=== PATIENT | female | born 1975 | race Caucasian/White ===

== ENCOUNTER 2020-06-13 20:11 | Day surgery (SDC) | payer BC, OTHER ==
[~2020-06-13] VITALS: Ht 175 cm; Wt 102.1 kg
--- NOTE | 2020-06-13 20:29 | ED General ---
General Chief Complaint: General Problems/Pain Stated Complaint: ABD PAIN History of Present Illness Date Seen by Provider: Jun 13, 2020 Time Seen by Provider: 20:29 Initial Comments Patient presented to emergency department for evaluation of right upper quadrant abdominal pain that started around 2:00 this afternoon while she was driving and she describes it as a gnawing aching pain that causes her some nausea. She says she has had some constipation but no fevers chills vomiting diarrhea dysuria hematuria vaginal bleeding or vaginal discharge and she denies having a prior abdominal surgeries. She says the pain started slightly and has increased in intensity over the last 6 hours. She is in no obvious distress with normal vital signs. Allergies and Home Medications Allergies Coded Allergies: No Known Drug Allergies (Unverified , 06/13/20) Patient Home Medication List Home Medication List Reviewed: Yes Review of Systems Review of Systems Constitutional: no symptoms reported EENTM: no symptoms reported Respiratory: no symptoms reported Cardiovascular: no symptoms reported Gastrointestinal: abdominal pain, nausea Genitourinary: no symptoms reported Musculoskeletal: no symptoms reported Skin: no symptoms reported Psychiatric/Neurological: No Symptoms Reported All Other Systems Reviewed Negative Unless Noted: Yes Past Yemibbz-Mpuqqf-Graaav Hx Patient Social History Recent Foreign Travel: No Contact w/Someone Who Travel: No Physical Exam Vital Signs Vital Signs - First Documented 06/13/20 20:20 Temp 37.3 Pulse 114 Resp 18 B/P (MAP) 144/72 (96) Pulse Ox 97 O2 Delivery Room Air Capillary Refill : Height, Weight, BMI Height: '" Weight: lbs. oz. kg; BMI Method: General Appearance: No Apparent Distress, WD/WN HEENT: PERRL/EOMI Neck: Supple Respiratory: Lungs Clear Cardiovascular: Regular Rate, Rhythm Gastrointestinal: Soft, Tenderness (RUQ with no rebound or guarding) Back: Normal Inspection Extremity: Normal Capillary Refill Neurologic/Psychiatric: Alert, Oriented x3 Skin: Warm/Dry Progress/Results/Core Measures Suspected Sepsis SIRS Temperature: Pulse: Respiratory Rate: Laboratory Tests 06/13/20 20:40: White Blood Count 12.0H Blood Pressure / Mean: Laboratory Tests 06/13/20 20:40: Creatinine 0.93, Platelet Count 324, Total Bilirubin 0.4 Results/Orders Lab Results Laboratory Tests Test 06/13/20 20:20 06/13/20 20:40 Range/Units Urine Color YELLOW Urine Clarity CLEAR Urine pH 7.0 5-9 Urine Specific [place] 1.020 1.016-1.022 Urine Protein NEGATIVE NEGATIVE Urine Glucose (UA) NEGATIVE NEGATIVE Urine Ketones NEGATIVE NEGATIVE Urine Nitrite NEGATIVE NEGATIVE Urine Bilirubin NEGATIVE NEGATIVE Urine Urobilinogen 0.2 < = 1.0 MG/DL Urine Leukocyte Esterase NEGATIVE NEGATIVE Urine RBC (Auto) TRACE H NEGATIVE Urine RBC 0-2 /HPF Urine WBC NONE /HPF Urine Crystals NONE /LPF Urine Bacteria NONE /HPF Urine Casts NONE /LPF Urine Mucus NEGATIVE /LPF Urine Culture Indicated NO White Blood Count 12.0 H 4.3-11.0 10^3/uL Red Blood Count 4.25 L 4.35-5.85 10^6/uL Hemoglobin 13.0 11.5-16.0 G/DL Hematocrit 39 35-52 % Mean Corpuscular Volume 91 80-99 FL Mean Corpuscular Hemoglobin 31 25-34 PG Mean Corpuscular Hemoglobin Concent 34 32-36 G/DL Red Cell Distribution Width 12.4 10.0-14.5 % Platelet Count 324 130-400 10^3/uL Mean Platelet Volume 9.2 7.4-10.4 FL Immature Granulocyte % (Auto) 0 % Neutrophils (%) (Auto) 71 42-75 % Lymphocytes (%) (Auto) 21 12-44 % Monocytes (%) (Auto) 6 0-12 % Eosinophils (%) (Auto) 1 0-10 % Basophils (%) (Auto) 1 0-10 % Neutrophils # (Auto) 8.6 H 1.8-7.8 X 10^3 Lymphocytes # (Auto) 2.5 1.0-4.0 X 10^3 Monocytes # (Auto) 0.7 0.0-1.0 X 10^3 Eosinophils # (Auto) 0.1 0.0-0.3 10^3/uL Basophils # (Auto) 0.1 0.0-0.1 10^3/uL Immature Granulocyte # (Auto) 0.0 0.0-0.1 10^3/uL Sodium Level 139 135-145 MMOL/L Potassium Level 3.8 3.6-5.0 MMOL/L Chloride Level 103 98-107 MMOL/L Carbon Dioxide Level 24 21-32 MMOL/L Anion Gap 12 5-14 MMOL/L Blood Urea Nitrogen 15 7-18 MG/DL Creatinine 0.93 0.60-1.30 MG/DL Estimat Glomerular Filtration Rate > 60 BUN/Creatinine Ratio 16 Glucose Level 120 H 70-105 MG/DL Calcium Level 9.7 8.5-10.1 MG/DL Corrected Calcium 9.4 8.5-10.1 MG/DL Total Bilirubin 0.4 0.1-1.0 MG/DL Aspartate Amino Transf (AST/SGOT) 19 5-34 U/L Alanine Aminotransferase (ALT/SGPT) 20 0-55 U/L Alkaline Phosphatase 64 40-136 U/L Total Protein 7.4 6.4-8.2 GM/DL Albumin 4.4 3.2-4.5 GM/DL Lipase 24 8-78 U/L My Orders Orders - NIR SOTO DO Cbc With Automated Diff (06/13/20 20:33) Comprehensive Metabolic Panel (06/13/20 20:33) Iv/Invasive Line Insertion .IV start (06/13/20 20:33) Ct Abdomen/Pelvis W (06/13/20 20:33) Ua Culture If Indicated (06/13/20 20:33) Lipase (06/13/20 20:33) Ondansetron Injection (Zofran Injectio (06/13/20 20:45) Ns Iv 1000 Ml (Sodium Chloride 0.9%) (06/13/20 20:45) Morphine Injection (Morphine Injection (06/13/20 20:33) Iohexol Injection (Omnipaque 350 Mg/Ml 1 (06/13/20 20:45) Received Contrast (Hold Metformin- Contr (06/13/20 20:45) Ns (Ivpb) (Sodium Chloride 0.9% Ivpb Bag (06/13/20 20:45) Medications Given in ED Current Medications Medications Dose Ordered Sig/Arron Route Start Time Stop Time Status Last Admin Dose Admin Iohexol 100 ml ONCE ONCE IV 06/13/20 20:45 06/13/20 21:14 DC 06/13/20 21:19 100 ML Ondansetron HCl 4 mg ONCE ONCE IVP 06/13/20 20:45 06/13/20 20:46 DC 06/13/20 20:43 4 MG Sodium Chloride 100 ml ONCE ONCE IV 06/13/20 20:45 06/13/20 21:14 DC 06/13/20 21:19 80 ML Vital Signs/I&O 06/13/20 20:20 Temp 37.3 Pulse 114 Resp 18 B/P (MAP) 144/72 (96) Pulse Ox 97 O2 Delivery Room Air Capillary Refill : Progress Note : Progress Note Patient's with right upper quadrant abdominal pain on exam. Will check labs imaging treat symptoms and reassess. Based off patient's location of pain I did not suspect that she would have acute appendicitis based off the CT read she does. I spoke to Dr. Roman and he will plan to take patient to the operating room tomorrow morning. Patient is comfortable with driving private vehicle to [facility] and Dr. Roman said he would put in a bridge orders. I told her to not eat or drink anything and drive straight there. Patient aware and agreeable with plan for transfer and she was transferred in stable condition with improved pain and a nonsurgical abdomen on initial and repeat abdominal exam. Departure Impression Primary Impression: Acute appendicitis Qualified Codes: K35.80 - Unspecified acute appendicitis Disposition: ADMITTED INPATIENT Condition: Improved Transfer Transfer Reason: Exceeds level of care Transfer Facility: [facility] Method of Transfer: Private Vehicle Departure-Patient Inst. Referrals: NO,LOCAL PHYSICIAN (PCP/Family) Primary Care Physician NIR SOTO DO Jun 13, 2020 20:29
[2020-06-13] MEDS ORDERED: morphine INJ 10 MG/ML 1ML (SYR OR VIAL) IVP STA (20:33)
[2020-06-13 20:43] LABS: CLARITY,URINE CLEAR; COLOR,URINE YELLOW
[2020-06-13 20:44] LABS: BILIRUBIN,URINE NEGATIVE (NEGATIVE); GLUCOSE, URINE (UA) NEGATIVE (NEGATIVE); KETONES,URINE NEGATIVE (NEGATIVE); LEUKOCYTE ESTERASE ,URINE NEGATIVE (NEGATIVE); NITRITE,URINE NEGATIVE (NEGATIVE); PROTEIN,URINE NEGATIVE (NEGATIVE); RBC,URINE 0-2 /HPF
[2020-06-13] MEDS ORDERED: IOHEXOL 350 MG/ML 100 ML (OMNIPAQUE 350) VIAL IV ONE (20:45)
[2020-06-13] MEDS ORDERED: ONDANSETRON 4 MG/2 ML (SDV) Z0FRAN IVP ONE (20:45)
[2020-06-13] MEDS ORDERED: HOLD METFORMIN - RECEIVED CONTRAST 20 ML VIAL IV SCH (20:45)
[2020-06-13] MEDS ORDERED: NS IV 1000 ML 1,000 ML IV SCH (20:45)
[2020-06-13] MEDS ORDERED: NS 100 ML (IVPB) BAG IV ONE (20:45)
[2020-06-13 20:56] LABS: BASOPHILS % (AUTO) 1 % (0-10); EOSINOPHILS % (AUTO) 1 % (0-10); HEMATOCRIT 39 % (35-52); LYMPHOCYTES # (AUTO) 2.5 X 10^3 (1.0-4.0); LYMPHOCYTES % (AUTO) 21 % (12-44); MEAN CORPUSCULAR HEMOGLOBIN 31 PG (25-34); MEAN CORPUSCULAR HGB CONC 34 G/DL (32-36); MEAN CORPUSCULAR VOLUME 91 FL (80-99); MEAN PLATELET VOLUME 9.2 FL (7.4-10.4); MONOCYTES # (AUTO) 0.7 X 10^3 (0.0-1.0); MONOCYTES % (AUTO) 6 % (0-12); NEUTROPHILS # (AUTO) 8.6 X 10^3 (1.8-7.8); NEUTROPHILS % (AUTO) 71 % (42-75); PLATELET COUNT 324 10^3/uL (130-400)
[2020-06-13 20:57] LABS: BASOPHILS # (AUTO) 0.1 10^3/uL (0.0-0.1); EOSINOPHILS # (AUTO) 0.1 10^3/uL (0.0-0.3)
[2020-06-13 21:12] LABS: BILIRUBIN,TOTAL 0.4 MG/DL (0.1-1.0); BUN/CREATININE RATIO 16; CALCIUM 9.7 MG/DL (8.5-10.1); CARBON DIOXIDE 24 MMOL/L (21-32); CHLORIDE 103 MMOL/L (98-107); CREATININE SERUM 0.93 MG/DL (0.60-1.30); GFR ESTIMATED > 60; GLUCOSE 120 MG/DL (70-105); POTASSIUM 3.8 MMOL/L (3.6-5.0); SODIUM 139 MMOL/L (135-145)
[2020-06-13 21:13] LABS: ALANINE AMINOTRANSFERASE 20 U/L (0-55); ALBUMIN 4.4 GM/DL (3.2-4.5); ALKALINE PHOSPHATASE 64 U/L (40-136); LIPASE 24 U/L (8-78); TOTAL PROTEIN 7.4 GM/DL (6.4-8.2)
--- NOTE | 2020-06-13 21:31 | Diagnostic Imaging Report ---
PROCEDURE: CT abdomen and pelvis with contrast. TECHNIQUE: Multiple contiguous axial images were obtained through the abdomen and pelvis after administration of intravenous contrast. Auto Exposure Controls were utilized during the CT exam to meet ALARA standards for radiation dose reduction. All CT scans use one or more of the following dose optimizing techniques: automated exposure control, MA and/or KvP adjustment based on patient size and exam type or iterative reconstruction. INDICATION: Right upper quadrant pain. FINDINGS: The heart size is normal. The lung bases are clear. The liver is normal in size and without focal lesions. Gallbladder is unremarkable. No biliary ductal dilatation. Spleen is normal. Stomach is normal. Pancreas and adrenal glands are unremarkable. The appendix is enlarged and hyperemic with surrounding inflammatory change compatible with acute appendicitis. The aorta is nonaneurysmal. Bowel gas pattern is nonspecific. The uterus is normal. Bladder is normal. There is no pelvic mass or adenopathy. The osseous structures are unremarkable IMPRESSION: 1. Findings compatible with an acute unruptured appendicitis. Report given to Dr. Bergeron at 9:30 PM 06/13/2020/cb Dictated by: Dictated on workstation # [id number]
[2020-06-13] MEDS ORDERED: LACTATED RINGERS 1,000 ML IV SCH (22:00)
[2020-06-13] MEDS ORDERED: PATIENT MAY USE OWN MEDS, ALL PO SCH ×2 (22:00→22:30)
[2020-06-13] MEDS ORDERED: ONDANSETRON 4 MG/2 ML (SDV) Z0FRAN IVP PRN (22:00)
[2020-06-13 23:18] VITALS: BP 129/69
[2020-06-13 23:25] VITALS: BP 126/62
[2020-06-13] MEDS ORDERED: PIPERACILLIN/TAZO 4.5 GM/NS 100 ML IV ONE ×2 (23:30)
[2020-06-14] VITALS (10 sets, daily range): BP systolic 105–119; BP diastolic 57–73
[2020-06-14] MEDS: LACTATED RINGERS 1,000 ML IV SCH ×3 (00:03→14:35)
[2020-06-14] MEDS: ACETAMINOPHEN 500 MG TAB (TYLENOL) PO SCH ×2 (00:04→05:49)
[2020-06-14] MEDS ORDERED: NS (IVPB) 100 ML ONE ×2 (00:06→05:31)
[2020-06-14] MEDS ORDERED: PIPERACILLIN/TAZO 4.5 GM VIAL (ZOSYN) IV ONE ×2 (00:06→05:31)
[2020-06-14] MEDS: KETOROLAC 30 MG/ML VIAL IV SCH ×2 (00:19→05:49)
[2020-06-14] MEDS: PIPERACILLIN/TAZO 4.5 GM/NS 100 ML IV SCH ×4 (05:54→14:34)
[2020-06-14] MEDS ORDERED: FLU QUADRIvalent (3YOA+) 60 mcg/0.5 ml 2020-21 (AFLURIA) IM ONE (07:00)
[2020-06-14] MEDS ORDERED: ONDANSETRON 4 MG/2 ML (SDV) Z0FRAN IV PRN (07:15)
--- NOTE | 2020-06-14 09:22 | History & Physical-Surgical ---
History of Present Illness History of Present Illness Reason for visit/HPI Surgery asked to admit pt regarding appendicitis. HPI per ED: Patient presented to emergency department for evaluation of right upper quadrant abdominal pain that started around 2:00 this afternoon while she was driving and she describes it as a gnawing aching pain that causes her some nausea. She says she has had some constipation but no fevers chills vomiting diarrhea dysuria hematuria vaginal bleeding or vaginal discharge and she denies having a prior abdominal surgeries. She says the pain started slightly and has increased in intensity over the last 6 hours. She is in no obvious distress with normal vital signs. When I spoke to pt this am she told me the pain is better, but still there. She rates the pain as 4 out of 10, yesterday it was at least an 8. She thought it might be gallbladder or gas pains, but since it wasn't going away she went in to the ER. She has never had pain like this before Date of Admission Jun 13, 2020 at 23:00 Time Seen by a Provider: 08:16 I consulted on this patient on 06/14/20 08:16 Attending Physician Thor Roman DO Admitting Physician No,Local Physician Consult Allergies and Home Medications Allergies Coded Allergies: No Known Drug Allergies (Unverified , 06/13/20) Patient Home Medication List Home Medication List Reviewed: Yes Past Mvntrzy-Zxkjvn-Lowsmu Hx Patient Social History Alcohol Use: Denies Use Recreational Drug Use: No Smoking Status: Never a Smoker Recent Foreign Travel: No Contact w/Someone Who Travel: No Recent Infectious Disease Expo: No Recent Hopitalizations: No Surgeries History of Surgeries: No Respiratory History of Respiratory Disorde: No Cardiovascular History of Cardiac Disorders: No Neurological History of Neurological Disord: No Reproductive System : No Genitourinary History of Genitourinary Disor: No Gastrointestinal History of Gastrointestinal Di: No Musculoskeletal History of Musculoskeletal Dis: No Endocrine History of Endocrine Disorders: No HEENT History of HEENT Disorders: No Cancer History of Cancer: No Psychosocial History of Psychiatric Problem: No Integumentary History of Skin or Integumenta: No Blood Transfusions History of Blood Disorders: No Family Medical History Significant Family History: CAD Over 55 Years Old (Father and actually during an angioplasty), Hypertension (Father) Review of Systems Constitutional: No chills, No diaphoresis; malaise EENTM: No blurred vision, No double vision, No mouth pain, No mouth swelling, No epistaxis Respiratory: No cough, No dyspnea on exertion, No short of breath Cardiovascular: No chest pain, No edema, No palpitations Gastrointestinal: abdominal pain (RUQ); No hematemesis, No jaundice; loss of appetite, nausea; No vomiting Genitourinary: No dysuria, No frequency, No hematuria Musculoskeletal: No back pain, No gout, No joint pain Skin: No change in color, No change in hair/nails Psychiatric/Neurological: Denies Anxiety, Denies Depressed, Denies Seizure, Denies Tremors pt denies any hx of abnormal bleeding or bruising Physical Exam Vital Signs Vital Signs - First Documented 06/13/20 20:20 Temp 37.3 Pulse 114 Resp 18 B/P (MAP) 144/72 (96) Pulse Ox 97 O2 Delivery Room Air Capillary Refill : Less Than 3 SecondsLess Than 3 Seconds Height, Weight, BMI Height: '" Weight: lbs. oz. kg; 33.33 BMI Method: General Appearance: No Apparent Distress, WD/WN Eyes: Bilateral Eye PERRL, Bilateral Eye EOMI HEENT: Pharynx Normal, Moist Mucous Membranes; No Scleral Icterus (L), No Scle ral Icterus (R) Neck: Full Range of Motion, Normal Inspection, Non Tender, Supple Respiratory: Chest Non Tender, Lungs Clear, Normal Breath Sounds, No Accessory Muscle Use, No Respiratory Distress Cardiovascular: Regular Rate, Rhythm, No Murmur Gastrointestinal: No Organomegaly, Soft; No Distended; Tenderness (right side, upper and lower quadrant) Back: No CVA Tenderness, No Vertebral Tenderness Extremity: Normal Inspection, Normal Range of Motion, Non Tender, No Calf Tenderness, No Pedal Edema Neurologic/Psychiatric: Alert, Oriented x3, No Motor/Sensory Deficits, Normal Mood/Affect, alpine patroller II-XII Norm as Tested Skin: Normal Color, Warm/Dry Lymphatic: No Adenopathy (neck, axilla or groin) Data Review Labs Laboratory Tests 06/13/20 20:20: Urine Color YELLOW, Urine Clarity CLEAR, Urine pH 7.0, Urine Specific [place] 1.020, Urine Protein NEGATIVE, Urine Glucose (UA) NEGATIVE, Urine Ketones NEGATIVE, Urine Nitrite NEGATIVE, Urine Bilirubin NEGATIVE, Urine Urobilinogen 0.2, Urine Leukocyte Esterase NEGATIVE, Urine RBC (Auto) TRACEH, Urine RBC 0-2, Urine WBC NONE, Urine Crystals NONE, Urine Bacteria NONE, Urine Casts NONE, Urine Mucus NEGATIVE, Urine Culture Indicated NO 06/13/20 20:40: White Blood Count 12.0H, Red Blood Count 4.25L, Hemoglobin 13.0, Hematocrit 39, Mean Corpuscular Volume 91, Mean Corpuscular Hemoglobin 31, Mean Corpuscular He moglobin Concent 34, Red Cell Distribution Width 12.4, Platelet Count 324, Mean Platelet Volume 9.2, Immature Granulocyte % (Auto) 0, Neutrophils (%) (Auto) 71, Lymphocytes (%) (Auto) 21, Monocytes (%) (Auto) 6, Eosinophils (%) (Auto) 1, Basophils (%) (Auto) 1, Neutrophils # (Auto) 8.6H, Lymphocytes # (Auto) 2.5, Monocytes # (Auto) 0.7, Eosinophils # (Auto) 0.1, Basophils # (Auto) 0.1, Immature Granulocyte # (Auto) 0.0, Sodium Level 139, Potassium Level 3.8, Chloride Level 103, Carbon Dioxide Level 24, Anion Gap 12, Blood Urea Nitrogen 15, Creatinine 0.93, Estimat Glomerular Filtration Rate > 60, BUN/Creatinine Ratio 16, Glucose Level 120H, Calcium Level 9.7, Corrected Calcium 9.4, Total Bilirubin 0.4, Aspartate Amino Transf (AST/SGOT) 19, Alanine Aminotransferase (ALT/SGPT) 20, Alkaline Phosphatase 64, Total Protein 7.4, Albumin 4.4, Lipase 24 06/14/20 04:40: Coronavirus 2019 ([facility]) Negative Radiology Date of Exam:06/13/20 CT ABDOMEN/PELVIS W PROCEDURE: CT abdomen and pelvis with contrast. TECHNIQUE: Multiple contiguous axial images were obtained through the abdomen and pelvis after administration of intravenous contrast. Auto Exposure Controls were utilized during the CT exam to meet ALARA standards for radiation dose reduction. All CT scans use one or more of the following dose optimizing techniques: automated exposure control, MA and/or KvP adjustment based on patient size and exam type or iterative reconstruction. INDICATION: Right upper quadrant pain. FINDINGS: The heart size is normal. The lung bases are clear. The liver is normal in size and without focal lesions. Gallbladder is unremarkable. No biliary ductal dilatation. Spleen is normal. Stomach is normal. Pancreas and adrenal glands are unremarkable. The appendix is enlarged and hyperemic with surrounding inflammatory change compatible with acute appendicitis. The aorta is nonaneurysmal. Bowel gas pattern is nonspecific. The uterus is normal. Bladder is normal. There is no pelvic mass or adenopathy. The osseous structures are unremarkable IMPRESSION: 1. Findings compatible with an acute unruptured appendicitis. Report given to Dr. Bergeron at 9:30 PM 06/13/2020/cb Dictated by: Dictated on workstation # [id number] Dict: 06/13/202120 Trans: 06/13/202133 [facility] [id number] Interpreted by: NIDA EDGAR MD Electronically signed by: NIDA EDGAR MD 06/13/202133 Assessment/Plan Assessment/Plan Admission Diagonsis Acute Appendicitis Admission Status: Observation Assessment/Plan Acute Appendicitis Pt was admitted last night, started on IV fluids, IV ABX, anti-emetics and pain control as needed. I spoke with her this am regarding Laparoscopic Appendectomy, possible open and wrote for consent. We discussed the procedure; including risks and complications not limited to pain, bleeding, infection, scar, damage to bowel and need for further procedure. All questions answered to her satisfaction. The plan is to do surgery today at noon, once the OR is available. Clinical Quality Measures DVT/VTE Risk/Contraindication: Risk Factor Score Per Nursin RFS Level Per Nursing on Admit: 2=Moderate THOR ROMAN DO Jun 14, 2020 09:22
[2020-06-14] MEDS ORDERED: LIDOCAINE/EPI 1%-1:100,000 (XYLOCAINE) 50 ML ONE (10:32)
--- NOTE | 2020-06-14 11:03 | NUR ---
TO SURGERY PER BED, URINE NEG, VERBALIZED UNDERSTANDING OF SURGERY, REMAINS NPO
[2020-06-14] MEDS: LACTATED RINGERS 1,000 ML IV PRN ×2 (11:05→12:53)
[2020-06-14] MEDS ORDERED: ROCURONIUM 10 MG/ML 5 ML SYRINGE IV ONE (11:21)
[2020-06-14] MEDS ORDERED: SEVOFLURANE (ULTANE) 15 ML INHAL SOLN ONE (11:21)
[2020-06-14] MEDS ORDERED: ONDANSETRON 4 MG/2 ML (SDV) Z0FRAN ONE (11:21)
[2020-06-14] MEDS ORDERED: MIDAZOLAM 2 MG/2 ML (VERSED) VIAL ONE (11:21)
[2020-06-14] MEDS ORDERED: proPOfol 200 MG/20 ML (DIPRIVAN) VIAL IV ONE (11:21)
[2020-06-14] MEDS ORDERED: fentaNYL INJECTION 100 MCG/2 ML AMP ONE (11:21)
[2020-06-14] MEDS ORDERED: SUCCINYLCHOLINE INJ 100 MG/5 ML SYR/VIAL ONE (11:21)
[2020-06-14] MEDS ORDERED: HYDROmorphone 2 MG/ML VIAL (DILAUDID) ONE (11:51)
[2020-06-14] MEDS ORDERED: KETOROLAC 30 MG/ML VIAL IV SCH (12:00)
[2020-06-14] MEDS ORDERED: GLYCOPYRROLATE 0.2 MG/ML (ROBINUL) 2 ML VIAL ONE (12:07)
[2020-06-14] MEDS ORDERED: NEOSTIGMINE 3 MG/3 ML VIAL ONE (12:07)
[2020-06-14] MEDS ORDERED: KETOROLAC 30 MG/ML VIAL ONE (12:09)
--- NOTE | 2020-06-14 12:17 | Progress Note-Post Operative ---
Post-Operative Progess Note Surgeon (s)/Mailmaster (s) Surgeon SHAYY ANTUNEZ DO Mailmaster: none Pre-Operative Diagnosis Acute Appy Post-Operative Diagnosis same - retrocecal Procedure & Operative Findings Date of Procedure 06/14/20 Procedure Performed/Findings PROCEDURE: Laparoscopic appendectomy. COMPLICATIONS: None. INDICATIONS: The patient is a 44 year old female who has been having right lower quadrant abdominal pain. Patient's exam consistent with appendicitis. I discussed risk and benefits of laparoscopic appendectomy and all indicated procedures with the possibility being a normal appendix. The patient understands the risks and benefits and wishes to proceed. Consent was signed on the chart. DESCRIPTION OF PROCEDURE: The patient was taken to the operating suite, prepped and draped in a sterile fashion. Timeout was performed. Local anesthetic was infiltrated just above the umbilicus and 11-blade scalpel was used to make a skin incision. Cautery was used to dissect down to the fascia and scored. Kochers were used to grasp and elevate it and the abdomen was then entered. A 0 Vicryl was placed in a [id number] fashion for closure at the end of the case. The balloon trocar was inserted into the abdomen and pneumoperitoneum was achieved. Under direct visualization of the laparoscope, a 5 mm trocar was placed in the suprapubic region and a 5 mm trocar was placed in the left lower quadrant. Appendix was located, [FINDINGS]. The base of the appendix was dissected around. Once at the base an Endo-ALYSON 2.5 stapler was then fired across the base of the appendix. The mesoappendix was then divided. It was then placed in an Endobag and removed through the 12 mm trocar site. The abdomen was then irrigated and suctioned. No other pathology noted. The abdomen was then desufflated and the trocars were removed. The 0 Vicryl placed at the beginning of the case was then tied closing the 12 mm fascial defect. The skin was then closed using 4-0 Monocryl in a subcuticular fashion. The abdomen was then washed and dried and Skin Affix was placed over the incisions. The patient tolerated the procedure well without any complications and was taken to the recovery room in stable condition. Anesthesia Type GET Estimated Blood Loss Estimated blood loss (mL): scant Specimens/Packing Specimens Removed SHAYY Ang DO Jun 14, 2020 12:17
[2020-06-14] MEDS ORDERED: HYDR-4226 PO (12:18)
--- NOTE | 2020-06-14 12:19 | Discharge Inst-Surgical ---
Discharge Inst-Surgical Depart Medication/Instructions New, Converted or Re-Newed RX: RX Given to Pt/Family Patient Instructions Follow up Appt: Make appointment for 1-2 weeks. [phone] Instructions: No lifting greater than 20 pounds. No strenuous activity. May shower in 24 hours, no tub bath or soaking. Use incentive spirometer at home as directed. No Smoking Skin/Wound Care: May remove bandages in am. You need to leave the Dermabond on incision it will fall off on it's own. Symptoms to Report: Appetite Changes, Extremity Discoloration, Numbness/Tingling, Swelling Increased, Bleeding Excessive, Eyesight Changes, Pain Increased, Urine Color Change, Constipation(Persistent), Fever over 101 degree F, Pain/Pressure in chest, Urinating Difficulty, Cough Up/Vomit Blood, Heart Beat Irreg/Pounding, Pain/Pressure in jaw, Cramps in feet or legs, Lightheadedness, Pain/Pressure in shoulder, Diarrhea(Persistent), Memory Changes Suddenly, Questions/Concerns, Weight gain consecutive days, Dizziness/Fainting, Nausea/Vomiting, Shortness of Breath, Weight gain over 2 pounds If questions or concerns contact your physician Or seek help at emergency department. Activity Activity as Tolerated: Yes Activity Instructions: Avoid Stress to Incision Driving Instructions: No Driving/Refer to Dr. Mo Discharge Diet: No Restrictions Diet After 24 Hours: Clear Liquid if Nauseous If Any Problems/Questions/Issu: Contact Your Physician, Go to Emergency Room Skin/Wound Care Infection Signs and Symptoms: Increased Redness, Foul Odor of Wound, Increased Drainage, Skin Itchy or Has a Rash, Increased Swelling, Temperature Above 101 F Wound Care Comment: heating pad to shoulder or neck tonight for pain Bathing Instructions: Shower Stitches/Sukhwinder/Dermabond Dis: Dermabond Ice Pack: Ice On and Off Site (at incisions as needed for pain) SHAYY ANTUNEZ DO Jun 14, 2020 12:19
[2020-06-14] MEDS ORDERED: SUGAMMADEX 500 MG/5 ML VIAL (BRIDION) IV ONE (12:31)
[2020-06-14] MEDS ORDERED: ONDANSETRON 4 MG/2 ML (SDV) Z0FRAN IVP PRN (12:45)
[2020-06-14] MEDS ORDERED: HYDROmorphone 2 MG/ML VIAL (DILAUDID) IV ONE (12:45)
--- NOTE | 2020-06-14 13:20 | NUR ---
RETURNED FROM RECOVERY, ALERT AND ORIENTED, LAP SITE ON ABD TIMES 3 SITES, NO DRAINAGE, OPEN TO AIR, ICE PACK TO ABD, NO C/O PAIN AT THIS TIME, RESP EVEN, ON ROOM AIR, O2 SAT 93 PERCENT, NOC/O NAUSEA, CALL LIGHT WITHIN REACH
[2020-06-14] MEDS ORDERED: ACETAMINOPHEN 500 MG TAB (TYLENOL) PO SCH ×2 (14:00)
--- NOTE | 2020-06-14 16:00 | NUR ---
TOLERATED CLEAR LIQUID DIET, VOIDING WITHOUT DIFFICULTY, ICE PACK TO ABD, DENIES PAIN AT THIS TIME, WALKED IN RAMIRES, MARTIN WELL.
--- NOTE | 2020-06-14 17:00 | NUR ---
DISCHARGE INSTRUCTIONS GIVEN, PRESCRIPTION GIVEN
--- NOTE | 2020-06-14 17:01 | Anesthesia-General Post-Op ---
General Patient Condition Mental Status/LOC: Same as Preop Cardiovascular: Satisfactory Nausea/Vomiting: Absent Respiratory: Satisfactory Pain: Controlled Complications: Absent Post Op Complications Complications None Follow Up Care/Instructions Patient Instructions None needed. Anesthesia/Patient Condition Patient Condition Patient is doing well, no complaints, stable vital signs, no apparent adverse anesthesia problems. No complications reported per nursing. D/C home per [place] Criteria: Yes DARREL CHOUDHURY CRNA Jun 14, 2020 17:01
--- NOTE | 2020-06-14 17:15 | NUR ---
SHERI CIFUENTES demonstrates understanding of discharge instructions and accurately returns instructions upon questioning. Copy of Post-Discharge Instructions and Medication Discharge Instructions given to patient. SHERI CIFUENTES isable to manage continuing needs after discharge. Patients belongings returned to . Skin dry and intact; no breakdown noted. Patient discharged from [facility]- on 06/14/20 at 1715. SHERI CIFUENTES left floor via w/c, accompanied by staff.
== END 2020-06-14 17:15 | disposition home or self-care (01) ==
LOC: ER FS 20:15 → 4TH 23:00 → SDC 23:00 → UNDOADMIN 23:00 → 4TH 23:00 → SDC 06-14 17:15 → UNDODISIN 06-14 17:15
PROVIDERS: ATTEND Surgery
DX: K35.80 Unspecified acute appendicitis (principal); J45.909 Unspecified asthma, uncomplicated; K21.9 Gastro-esophageal reflux disease without esophagitis; Z79.51 Long term (current) use of inhaled steroids; Z79.899 Other long term (current) drug therapy; Z82.49 Family history of ischemic heart disease and other diseases of the circulatory system
CPT/HCPCS: 36415; 74177; 80053; 81000; 83690; 84703; 85025; 87081; 87635; 88304

== ENCOUNTER 2020-10-11 15:06 | Emergency (ER) | payer BC ==
[~2020-10-11] VITALS: Ht 175.2 cm; Wt 102.1 kg
[~2020-10-11 15:06] MED LIST: HYDR-4226 PO
--- NOTE | 2020-10-11 15:09 | ED General ---
General Stated Complaint: CHEST PAIN Source of Information: Patient History of Present Illness Date Seen by Provider: Oct 11, 2020 Time Seen by Provider: 15:09 Initial Comments 45-year-old female with no significant past medical history presents with sudden onset of chest pain while at rest just prior to arrival. 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 Denies any preceding illness, cough, fever or chills. Denied any shortness of air, extremity or back pain. Denies previous occurrence of similar pain, denies history of GERD. Allergies and Home Medications Allergies Coded Allergies: No Known Drug Allergies (Unverified , 06/13/20) Home Medications Famotidine 20 Mg Tablet, 20 MG PO BID Prescribed by: JACLYN GLASGOW on 10/11/20 1718 Hydrocodone/Acetaminophen 1 Each Tablet, 1 TAB PO Q6H Prescribed by: SHAYY ANTUNEZ on 06/14/20 1218 Patient Home Medication List Home Medication List Reviewed: Yes Review of Systems Review of Systems Constitutional: No chills, No diaphoresis, No fever, No malaise, No weakness EENTM: no symptoms reported Respiratory: no symptoms reported; No cough, No short of breath, No stridor, No wheezing Cardiovascular: see HPI, chest pain; No edema, No palpitations, No syncope, No vascular heart diseas Gastrointestinal: No abdominal pain, No dysphagia, No loss of appetite, No na usea, No vomiting Musculoskeletal: No back pain, No joint pain, No muscle pain, No neck pain Skin: No change in color, No rash Past Doaspml-Ypggsq-Efanax Hx Past Med/Social Hx: Reviewed Nursing Past Med/Soc Hx Patient Social History Recent Hopitalizations: No Past Medical History Surgeries: No Respiratory: No Currently Using CPAP: No Currently Using BIPAP: No Cardiac: No Neurological: No Genitourinary: No Gastrointestinal: No Musculoskeletal: No Endocrine: No HEENT: No Cancer: No Psychosocial: No Integumentary: No Blood Disorders: No Family Medical History CAD Over 55 Years Old, Hypertension Physical Exam Vital Signs Vital Signs - First Documented 10/11/20 15:06 Temp 36.0 Pulse 97 Resp 18 B/P (MAP) 116/70 (85) Pulse Ox 97 O2 Delivery Room Air Capillary Refill : Height, Weight, BMI Height: '" Weight: lbs. oz. kg; 33.33 BMI Method: General Appearance: No Apparent Distress, WD/WN Neck: Normal Inspection, Non Tender, Supple Respiratory: Chest Non Tender, Lungs Clear, Normal Breath Sounds, No Accessory Muscle Use, No Respiratory Distress Cardiovascular: Regular Rate, Rhythm, No Edema, No Gallop, No JVD, No Murmur, Normal Peripheral Pulses Gastrointestinal: No Organomegaly, No Pulsatile Mass, Non Tender, Soft; No Distended, No Guarding Back: Normal Inspection, No CVA Tenderness Extremity: Normal Capillary Refill, Non Tender Neurologic/Psychiatric: Alert, Oriented x3, No Motor/Sensory Deficits, Normal Mood/Affect Skin: Normal Color, Warm/Dry Progress/Results/Core Measures Suspected Sepsis SIRS Temperature: Pulse: Respiratory Rate: Laboratory Tests 10/11/20 15:10: White Blood Count 7.7 Blood Pressure / Mean: Laboratory Tests 10/11/20 15:10: Creatinine 0.92, Platelet Count 355, Total Bilirubin 0.3 Results/Orders Lab Results Laboratory Tests Test 10/11/20 15:10 10/11/20 16:50 Range/Units White Blood Count 7.7 4.3-11.0 10^3/uL Red Blood Count 4.58 4.35-5.85 10^6/uL Hemoglobin 13.8 11.5-16.0 G/DL Hematocrit 42 35-52 % Mean Corpuscular Volume 91 80-99 FL Mean Corpuscular Hemoglobin 30 25-34 PG Mean Corpuscular Hemoglobin Concent 33 32-36 G/DL Red Cell Distribution Width 13.1 10.0-14.5 % Platelet Count 355 130-400 10^3/uL Mean Platelet Volume 9.1 7.4-10.4 FL Neutrophils (%) (Auto) 43 42-75 % Lymphocytes (%) (Auto) 45 H 12-44 % Monocytes (%) (Auto) 8 0-12 % Eosinophils (%) (Auto) 4 0-10 % Basophils (%) (Auto) 1 0-10 % Neutrophils # (Auto) 3.3 1.8-7.8 X 10^3 Lymphocytes # (Auto) 3.5 1.0-4.0 X 10^3 Monocytes # (Auto) 0.6 0.0-1.0 X 10^3 Eosinophils # (Auto) 0.3 0.0-0.3 10^3/uL Basophils # (Auto) 0.1 0.0-0.1 10^3/uL Sodium Level 140 135-145 MMOL/L Potassium Level 4.1 3.6-5.0 MMOL/L Chloride Level 104 98-107 MMOL/L Carbon Dioxide Level 26 21-32 MMOL/L Anion Gap 10 5-14 MMOL/L Blood Urea Nitrogen 10 7-18 MG/DL Creatinine 0.92 0.60-1.30 MG/DL Estimat Glomerular Filtration Rate > 60 BUN/Creatinine Ratio 11 Glucose Level 105 70-105 MG/DL Calcium Level 9.9 8.5-10.1 MG/DL Corrected Calcium 9.5 8.5-10.1 MG/DL Total Bilirubin 0.3 0.1-1.0 MG/DL Aspartate Amino Transf (AST/SGOT) 18 5-34 U/L Alanine Aminotransferase (ALT/SGPT) 25 0-55 U/L Alkaline Phosphatase 79 40-136 U/L Troponin I < 0.30 < 0.30 <0.30 NG/ML Total Protein 7.8 6.4-8.2 GM/DL Albumin 4.5 3.2-4.5 GM/DL My Orders Orders - CORRINAVENSTJACLYN MCLAIN DO Ed Iv/Invasive Line Start (10/11/20 15:16) Cbc With Automated Diff (10/11/20 15:16) Comprehensive Metabolic Panel (10/11/20 15:16) Troponin I Fs (10/11/20 15:16) Ekg Tracing (10/11/20 15:16) Chest 1 View Ap/Pa Only (10/11/20 15:16) Aspirin Chewable Tablet (Baby Aspirin Ch (10/11/20 15:30) Troponin I Fs (10/11/20 17:00) Medications Given in ED Current Medications Medications Dose Ordered Sig/Arron Route Start Time Stop Time Status Last Admin Dose Admin Aspirin 324 mg ONCE ONCE PO 10/11/20 15:30 10/11/20 15:31 DC 10/11/20 15:41 324 MG Vital Signs/I&O 10/11/20 10/11/20 15:06 17:22 Temp 36.0 36.0 Pulse 97 78 Resp 18 18 B/P (MAP) 116/70 (85) 133/74 (85) Pulse Ox 97 97 O2 Delivery Room Air Room Air Capillary Refill : Progress Note : Progress Note repeat delta Troponin negative after > 2 hours from episode. Patient did not have any episodes while in ER. Discussed need for follow up (pt does not have a PCP) to consider scheduling a stress test. Patient mentions she is moving to [place] in 3 weeks. 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 Empiric Rx for Pepcid for possible GERD. ECG Initial ECG Impression Time: 15:10 Initial ECG Rate: 80 Initial ECG Rhythm: Normal Sinus Initial ECG Intervals: Normal Initial ECG Impression: Normal Initial ECG Comparisson: No Previous ECG Available Diagnostic Imaging Diagonstic Imaging: Xray Plain Films/CT/US/NM/MRI: chest Comments Date of Exam:10/11/20 CHEST 1 VIEW AP/PA ONLY Indication: Substernal chest pain Portable chest 3:20 PM Heart size and pulmonary vascularity are normal. Lungs are clear. There are no effusions or pneumothoraces. IMPRESSION: Negative chest Dictated by: Dictated on workstation # [id number] Dict: 10/11/20 1533 Trans: 10/11/20 1533 TCB [id number] Interpreted by: NELLY العراقي MD Electronically signed by: NELLY العراقي MD 10/11/20 1533 Departure Impression Primary Impression: Chest pain at rest Disposition: 01 HOME, SELF-CARE Condition: Stable Departure-Patient Inst. Decision time for Depature: 17:19 Referrals: NO,LOCAL PHYSICIAN (PCP/Family) Primary Care Physician Patient Instructions: Chest Pain, Adult ED Add. Discharge Instructions: Follow up with your PCP in 3 to 5 days for discussion about today's episode of chest pain. It would be advised that you have a stress test scheduled and your PCP can get that set up for you. If you have any return of chest pain that is not relieved in a few minutes, it is advised you return to the nearest ER for further evaluation. Scripts Famotidine (Pepcid) 20 Mg Tablet 20 MG PO BID, #30 TAB Prov: JACLYN GLASGOW DO 10/11/20 JACLYN GLASGOW DO Oct 11, 2020 15:09
[2020-10-11 15:25] LABS: HEMATOCRIT 42 % (35-52); HEMOGLOBIN 13.8 G/DL (11.5-16.0); MEAN CORPUSCULAR HEMOGLOBIN 30 PG (25-34); MEAN CORPUSCULAR HGB CONC 33 G/DL (32-36); MEAN CORPUSCULAR VOLUME 91 FL (80-99); WHITE BLOOD COUNT 7.7 10^3/uL (4.3-11.0)
[2020-10-11 15:26] LABS: BASOPHILS # (AUTO) 0.1 10^3/uL (0.0-0.1); BASOPHILS % (AUTO) 1 % (0-10); EOSINOPHILS # (AUTO) 0.3 10^3/uL (0.0-0.3); EOSINOPHILS % (AUTO) 4 % (0-10); LYMPHOCYTES # (AUTO) 3.5 X 10^3 (1.0-4.0); LYMPHOCYTES % (AUTO) 45 % (12-44); MEAN PLATELET VOLUME 9.1 FL (7.4-10.4); MONOCYTES # (AUTO) 0.6 X 10^3 (0.0-1.0); MONOCYTES % (AUTO) 8 % (0-12); NEUTROPHILS # (AUTO) 3.3 X 10^3 (1.8-7.8); NEUTROPHILS % (AUTO) 43 % (42-75); PLATELET COUNT 355 10^3/uL (130-400)
[2020-10-11] MEDS ORDERED: ASPIRIN 81 MG CHEW (CHILDREN'S ASA) PO ONE (15:30)
--- NOTE | 2020-10-11 15:35 | Diagnostic Imaging Report ---
Indication: Substernal chest pain Portable chest 3:20 PM Heart size and pulmonary vascularity are normal. Lungs are clear. There are no effusions or pneumothoraces. IMPRESSION: Negative chest Dictated by: Dictated on workstation # [id number]
[2020-10-11 15:42] LABS: ALANINE AMINOTRANSFERASE 25 U/L (0-55); ALKALINE PHOSPHATASE 79 U/L (40-136); BILIRUBIN,TOTAL 0.3 MG/DL (0.1-1.0); BUN/CREATININE RATIO 11; CALCIUM 9.9 MG/DL (8.5-10.1); CARBON DIOXIDE 26 MMOL/L (21-32); CHLORIDE 104 MMOL/L (98-107); CREATININE SERUM 0.92 MG/DL (0.60-1.30); GFR ESTIMATED > 60; GLUCOSE 105 MG/DL (70-105); POTASSIUM 4.1 MMOL/L (3.6-5.0); SODIUM 140 MMOL/L (135-145)
[2020-10-11 15:43] LABS: ALBUMIN 4.5 GM/DL (3.2-4.5); TOTAL PROTEIN 7.8 GM/DL (6.4-8.2)
[2020-10-11] MEDS ORDERED: FAMO-119 PO (17:18)
[2020-10-11 17:22] VITALS: BP 133/74
== END 2020-10-11 17:22 | disposition home or self-care (01) ==
LOC: EDUNIT# 15:06 → ER FS 15:07
DX: R07.89 Other chest pain (principal)
CPT/HCPCS: 36415; 71045; 80053; 84484; 85025; 93005